=== PATIENT | female | born 1975 | race Caucasian/White ===

== ENCOUNTER 2017-06-19 09:00 | Outpatient (CLI) | payer MEDICAID | END 2017-06-19 23:59 | disposition home or self-care (01) | LOC: D.MAMMO 09:00 | DX: Z12.31 Encounter for screening mammogram for malignant neoplasm of breast (principal) ==

== ENCOUNTER → 2018-04-16 14:00 | Outpatient (CLI) | payer MEDICAID | END | disposition home or self-care (01) | LOC: D.RAD 14:00 | DX: M54.5 Low back pain (principal) ==

== ENCOUNTER → 2018-10-15 20:04 | Outpatient (CLI) | payer MEDICAID | END | disposition home or self-care (01) | LOC: D.MAMMO 11:15 | DX: Z12.31 Encounter for screening mammogram for malignant neoplasm of breast (principal) ==

== ENCOUNTER 2018-11-30 15:00 | Outpatient (CLI) | payer MEDICAID | END 2018-11-30 16:00 | disposition home or self-care (01) | LOC: D.MAMMO 15:00 | PROVIDERS: ATTEND Nurse Practitioner | DX: R92.2 Inconclusive mammogram (principal) ==